=== PATIENT | male | born 1945 | race Caucasian/White ===

== ENCOUNTER 2021-12-14 09:20 | Day surgery (SDC) | payer MEDICARE, OTHER ==
[2021-12-12 13:25] LABS: CLARITY,URINE CLEAR (Clear); COLOR,URINE YELLOW (Yellow); GLUCOSE, URINE NEGATIVE (Neg); KETONES,URINE NEGATIVE (Neg); LEUKOCYTE ESTERASE ,URINE NEGATIVE (Neg); NITRITES, URINE NEGATIVE (Neg); OCCULT BLOOD,URINE SMALL (Neg); PROTEIN,URINE 30 mg/dl (Neg); UROBILINOGEN,URINE 0.2 E.U/dL (0.2-1.0)
[2021-12-12 13:41] LABS: MONOCYTES # (AUTO) 0.5 X10'3 (0-0.9); PRE OP HEMATOCRIT 27.6 % (42.0-52.0); UA COLLECTION TYPE CLN CATCH MIDSTREAM
[2021-12-12 13:43] LABS: BASOPHILS % (AUTO) 0.3 % (0-1); EOSINOPHILS % (AUTO) 0.3 % (0-6); LYMPHOCYTES # (AUTO) 12.5 X10'3 (1.1-4.8); LYMPHOCYTES % (AUTO) 86.8 % (21-51); MEAN CORPUSCULAR HEMOGLOBIN 31.1 PG (27.0-31.0); MEAN CORPUSCULAR HGB CONC 33.9 g/dL (33.0-36.5); MEAN CORPUSCULAR VOLUME 91.7 FL (78-98); MEAN PLATELET VOLUME 7.4 FL (7.4-10.4); MONOCYTES % (AUTO) 3.5 % (2-12); NEUTROPHILS # (AUTO) 1.3 X10'3 (1.8-7.7); NEUTROPHILS % (AUTO) 9.1 % (42-75); RED BLOOD COUNT 3.01 X10'6 (4.70-6.10); RED CELL DISTRIBUTION WIDTH 21.5 % (11.5-14.5); WBC,URINE 0-4 /HPF (0-4)
[2021-12-12 13:44] LABS: ALBUMIN 3.9 G/DL (3.4-5.0); ALKALINE PHOSPHATASE 81 IU/L (46-116); BACTERIA,URINE NONE SEEN /HPF (Neg); BLOOD UREA NITROGEN 21 MG/DL (7-18); BUN/CREATININE RATIO 20.2 (5.4-32.0); CHLORIDE 104 MMOL/L (99-107); CREATININE 1.04 MG/DL (0.60-1.10); MUCUS STRANDS NONE SEEN /LPF (Neg); PRE OP ALT 18 U/L (30-65); PRE OP ANION GAP 3 (8-16); PRE OP POTASSIUM 4.2 MMOL/L (3.4-5.1); PRE OP SODIUM 138 MMOL/L (135-145); RBC,URINE NONE SEEN /HPF (0-2); SQUAMOUS EPITHELIAL CELL,UR NONE SEEN /LPF (FEW); TOTAL CARBON DIOXIDE 30.7 MMOL/L (24-32); eGFR 70 ML/MIN
[2021-12-12 13:49] LABS: PRE OP HEMOGLOBIN 9.4 g/dL (14.0-17.9)
[2021-12-12 13:50] LABS: PRE OP PLATELET COUNT 96 X10'3 (140-440)
[2021-12-12 13:57] LABS: CALCIUM 8.6 MG/DL (8.5-10.1); PRE OP AST 25 U/L (10-37); PRE OP BILIRUB, TOTAL 1.7 MG/DL (0.0-1.0); PRE OP GLUCOSE 94 MG/DL (70-104)
[2021-12-12 14:35] LABS: TOTAL CELLS COUNTED 100
[2021-12-12 14:36] LABS: ANISOCYTOSIS 3+; PLATELET ESTIMATE DECREASED; SMUDGE CELLS 1+
[2021-12-12 14:37] LABS: TEAR DROP CELLS FEW
[2021-12-14] VITALS (19 sets, daily range): BP systolic 129–155; BP diastolic 60–78
[~2021-12-14] VITALS: Ht 180.3 cm; Wt 84.5 kg
[~2021-12-14 09:20] MED LIST: AMLO10TA13 PO; ATOR10TA70 PO; BENA20TA82 PO; CHOL500050 PO; IBUP-1984 PO; ZINC PO; ceFAZolin inj. 2,000 MG in dextrose 5%-water 100 ML IV ONE; famotidine 20mg tablet PO ONE; ringers solution, lacted 1,000 ML IV SCH
[2021-12-14] MEDS ORDERED: BUPIVAcaine/PF 2.5 mg/ml (0.25%) 30ml vial ONE (12:56)
[2021-12-14] MEDS ORDERED: ringers solution, lacted 1,000 ML IV SCH (13:40)
[2021-12-14] MEDS ORDERED: morphine 2 MG/ML inj. syringe IV PRN (13:40)
[2021-12-14] MEDS ORDERED: ondansetron/PF 4mg/2ml inj IV PRN (13:40)
[2021-12-14] MEDS ORDERED: morphine 4 MG/ML inj SYRINge IV PRN (13:40)
[2021-12-14] MEDS ORDERED: labetalol 20mg/4ml (5mg/ml) syringe IV PRN (13:40)
[2021-12-14] MEDS ORDERED: fentaNYL/PF 50MCG/1 ML 2ML syringe IV PRN ×2 (13:40)
[2021-12-14] MEDS ORDERED: hydrALAZINE 20mg/ml inj. IV PRN (13:40)
[2021-12-14] MEDS ORDERED: dexamethasone sod phosphate 10mg/ml inj ONE (14:10)
[2021-12-14] MEDS ORDERED: neostigmine methylsulfate 1 MG/ML 10ml vial ONE (14:10)
[2021-12-14] MEDS ORDERED: desflurane 240ml liquid inh. IH ONE (14:10)
[2021-12-14] MEDS ORDERED: glycopyrrolate 0.2mg/ml inj ONE (14:10)
[2021-12-14] MEDS ORDERED: midazolam 1 mg/ML 2ml injection ONE (14:12)
[2021-12-14] MEDS ORDERED: LIDOcaine 2% (20mg/ml) 5ml vial ONE (14:12)
[2021-12-14] MEDS ORDERED: fentaNYL/PF 50MCG/1 ML 2ML syringe ONE (14:12)
[2021-12-14] MEDS ORDERED: rocuronium 10mg/ml inj IV ONE (14:12)
[2021-12-14] MEDS ORDERED: propofol inj 20 ML IV ONE (14:12)
[2021-12-14] MEDS ORDERED: ondansetron/PF 4mg/2ml inj ONE (14:24)
[2021-12-14] MEDS ORDERED: labetalol 20mg/4ml (5mg/ml) syringe IV ONE (14:44)
[2021-12-14] MEDS ORDERED: BUPIVAcaine/PF 2.5mg/ml (0.25%) 10ml vial ONE (15:29)
[2021-12-14] MEDS ORDERED: BUPIVACAINE liposomal/PF 13.3 MG/ML vial IM ONE (15:30)
--- NOTE | 2021-12-14 15:58 | NUR ---
Received from OR via [facility], accompanied by Anesthesiologist DR MEDINA and report given by Anesthesiologist AND DRILLING PLANT OPERATOR. PT DROWSY, DENIES PAIN. ABDOMEN W/3 LAP SITES W/DERMABOND CDI. Addendum: 12/14/21 at 1638 by Lissa Roach RN Amended: Links added.
[2021-12-14] MEDS ORDERED: HYDROcodone/acetaminophen 10/325mg tab PO ONE (18:40)
--- NOTE | 2021-12-14 18:54 | NUR ---
BLADDER SCANNED PT FOR 120 ML OF URINE ABOUT 45 MINUTES AGO, PT DRINKING WATER AND PEPSI, AMBULATING SAFELY AND STEADY, UNABLE TO VOID AT THIS TIME. Addendum: 12/14/21 at 1905 by Lissa Roach RN Amended: Links added.
[2021-12-14] MEDS ORDERED: LIDOcaine 2% 10ml TOPICAL JELLY (Urojet) MM ONE (19:30)
--- NOTE | 2021-12-14 20:28 | NUR ---
PT UNABLE TO VOID, RESCANNED BLADDER FOR 240 ML'S, [address] W/ASEPTIC TECHNIQUE W/CLEAR YELLOW URINE RETURN FOR 245 ML. D/C INSTRUCTIONS GIVEN AND GONE OVER W/PT INCLUDING DOZIER CATHETER CARE, PT VERBALIZED UNDERSTANDING. PT D/CD TO HOME VIA W/C TO PRIVATE VEHICLE W/O INCIDENT. Addendum: 12/14/21 at 2042 by Lissa Roach RN Amended: Links added.
== END 2021-12-14 20:28 | disposition home or self-care (01) ==
LOC: PAS 09:20
PROVIDERS: ATTEND Surgery
DX: K40.90 Unilateral inguinal hernia, without obstruction or gangrene, not specified as recurrent (principal); Z79.899 Other long term (current) drug therapy; Z98.890 Other specified postprocedural states; Z98.49 Cataract extraction status, unspecified eye; Z96.642 Presence of left artificial hip joint
CPT/HCPCS: 36415; 49650; 80053; 81001; 82948; 85025; 87811; 93005; C1758; C1781; C9290; J0690; J1100; J2250; J2405; J2704; J2710; J3010; J3490; J7030; J7060; J7120; Z7506; Z7508; Z7512; 85007; A4215; A4618